=== PATIENT | male | born 1955 | race Caucasian/White ===

== ENCOUNTER → 2021-09-14 | Outpatient (CLI) | payer MEDICARE, OTHER ==
[~2021-09-14] MED LIST: ASPIR 8181 MG PO; CRESTOR20 MG PO; CYCLOBENZAPRINE10 MG PO; CYCLOBENZAPRINE5 MG PO; FISH OIL 1,001000 M2 PO; LISINOPRIL20 MG PO
== END ==
LOC: M.ULTRA 10:16
PROVIDERS: ATTEND Family Medicine
DX: K76.89 Other specified diseases of liver (principal); N28.9 Disorder of kidney and ureter, unspecified

== ENCOUNTER → 2021-09-20 | Outpatient (CLI) | payer MEDICARE, OTHER | LOC: M.CT 10:00 | PROVIDERS: ATTEND Family Medicine | DX: K76.89 Other specified diseases of liver (principal); K80.20 Calculus of gallbladder without cholecystitis without obstruction ==